=== PATIENT | female | born 1970 | race Two or more races ===

== ENCOUNTER → 2022-03-03 | Outpatient (CLI) | payer OTHER ==
[2016-04-26 14:58] VITALS: BP 113/69
--- NOTE | 2022-03-04 08:48 | RAD ---
Right upper quadrant ultrasound 03/03/2022 5:10 PM Clinical History: Elevated liver enzymes. Hyperlipidemia. Technique: Ultrasound examination of the abdomen was performed, and multiple static images were subm itted for review. Comparison: None Findings: The pancreas, aorta, and IVC are poorly visualized. The gallbladder is normal in appearance without w all thickening, stones, or sludge. No pericholecystic fluid is seen. Sonographic Florez's sign is neg ative. The common bile duct measures 2 mm in diameter which is within normal limits. The liver measures 13 cm longitudinally. The liver is normal in echotexture. No intrahepatic biliary ductal dilatation is seen. No focal hepatic lesions are identified. The right kidney is unremarkable appearance measuring 9 point centimeters in length. Impression: No sonographic evidence of acute intra-abdominal abnormality. Electronically signed by: Perry Mccray MD (03/04/2022 8:46 AM) [id number]
== END ==
LOC: US 15:53
PROVIDERS: ATTEND Family Medicine Sports Medicine
DX: R74.8 Abnormal levels of other serum enzymes (principal); E78.5 Hyperlipidemia, unspecified
CPT/HCPCS: 76705